=== PATIENT | female | born 1940 | race Caucasian/White ===

== ENCOUNTER → 2018-11-30 09:45 | Outpatient (CLI) | payer MEDICARE, BC | END | disposition home or self-care (01) | LOC: D.RAD 09:45 | PROVIDERS: ATTEND Internal Medicine Gastroenterology | DX: R13.10 Dysphagia, unspecified (principal); R12 Heartburn; R19.4 Change in bowel habit; K58.9 Irritable bowel syndrome, unspecified ==

== ENCOUNTER 2019-01-27 02:56 | Emergency (ER) | payer MEDICARE, BC ==
[~2019-01-27] VITALS: Ht 154.9 cm; Wt 68.6 kg
[2019-01-27] MEDS ORDERED: BACLOFEN10 MG PO (03:03)
[2019-01-27] MEDS ORDERED: COZAAR50 MG PO (03:04)
[2019-01-27] MEDS ORDERED: TIMOPTIC 0.5 % O5 ML EACH EYE (03:04)
[2019-01-27] MEDS ORDERED: TENORMIN50 MG PO (03:04)
[2019-01-27] MEDS ORDERED: ULTRAM50 MG PO (03:04)
[2019-01-27] MEDS ORDERED: LITHOBID 300 M300 MG PO (03:04)
[2019-01-27] MEDS ORDERED: MYSOLINE 50 MG50 MG PO (03:05)
== END 2019-01-27 05:08 | disposition home or self-care (01) ==
LOC: D.ER 02:56
DX: M54.16 Radiculopathy, lumbar region (principal)

== ENCOUNTER 2019-01-30 10:03 | Emergency (ER) | payer MEDICARE, BC ==
[~2019-01-30] VITALS: Ht 154.9 cm; Wt 68.6 kg
[~2019-01-30 10:03] MED LIST: BACLOFEN10 MG PO; COZAAR50 MG PO; LITHOBID 300 M300 MG PO; MYSOLINE 50 MG50 MG PO; TENORMIN50 MG PO; TIMOPTIC 0.5 % O5 ML EACH EYE; ULTRAM50 MG PO
[2019-01-30 10:18] VITALS: Ht 154.9 cm; Wt 68.6 kg
[2019-01-30 12:34] VITALS: BP 122/64
== END 2019-01-30 12:34 | disposition home or self-care (01) ==
LOC: D.ER 10:03
DX: G57.00 Lesion of sciatic nerve, unspecified lower limb (principal)